=== PATIENT | female | born 1945 | race Caucasian/White ===

== ENCOUNTER 2019-03-21 16:03 | Inpatient (IN) | payer MEDICARE, OTHER ==
[2019-03-21] MEDS ORDERED: Morphine 4 MG/ML VIAL (1 ml) 4 MG/ML VIAL IV ONE (17:06)
[2019-03-21] MEDS ORDERED: NS 0.9% 1000 ML** 1,000 ML IV ONE (17:06)
[2019-03-21 17:09] LABS: Urine Appearance Clear; Urine Bacteria Absent (Absent); Urine Bilirubin Negative (Negative); Urine Blood 3+ (Negative); Urine Color Straw; Urine Glucose 1+(50 mg/dL) (Negative); Urine Ketones 1+ (Negative); Urine Nitrite Negative (Negative); Urine Protein Negative (Negative); Urine Red Blood Cell 3+(>10/hpf) (Absent); Urine Squamous Epithelial Cell Present (Absent); Urine Urobilinogen Negative (Negative); Urine White Blood Cell Trace(0-5/hpf) (Absent)
[2019-03-21] MEDS ORDERED: cloNIDine TAB* 0.1 MG PO ONE (17:32)
[2019-03-21] MEDS ORDERED: Acetaminophen TAB* 325 MG PO PRN (18:39)
[2019-03-21] MEDS ORDERED: Ondansetron INJ* 2 MG/ML VIAL IV PRN (18:39)
[2019-03-21] MEDS ORDERED: Heparin VIAL(*) 5000 UNITS/ML VIAL (FIVE THOUSAND) SUBCUT ONE (18:46)
[2019-03-21] MEDS ORDERED: Metoprolol Tartrate IV* 1 MG/ML 5 ML VIAL IV PRN (18:47)
[2019-03-21] MEDS ORDERED: Morphine 4 MG/ML VIAL (1 ml) 4 MG/ML VIAL ONE (19:32)
[2019-03-21] MEDS: Morphine 4 MG/ML VIAL (1 ml) 4 MG/ML VIAL IV PRN (19:35)
[2019-03-21] MEDS: Lactated Ringers 1000 ML Bag* 1,000 ML IV SCH (20:56)
[2019-03-21] MEDS: Atorvastatin* 10 MG TAB PO SCH (21:00)
[2019-03-21] MEDS ORDERED: Metoprolol Succinate XL TAB* 50 MG PO SCH (21:00)
[2019-03-21] MEDS: Metoprolol Succinate XL TAB* 25 MG PO SCH (21:01)
--- NOTE | 2019-03-21 21:08 | HP ---
CC: Dr. Sierra Jacobs * ADMISSION HISTORY AND PHYSICAL: DATE OF ADMISSION: 03/21/19 PRIMARY CARE PROVIDER: Dr. Sierra Jacobs. MY ATTENDING WHILE IN THE HOSPITAL: Dr. Tre Palomares.* (DICTATED BY CINTHIA ELLIS) CHIEF COMPLAINT: Fall, left hip pain. HISTORY OF PRESENT ILLNESS: Ms. Ray Caro is a 73-year-old female with past medical history significant for multiple CVAs, hypertension, hyperlipidemia and hypothyroidism, who presents to the emergency department after she was feeling in her normal state of health today, she was walking around her house as she usually does using a rolling walker for support and got her legs caught in with each other and fell. The patient had a significant left-sided weakness from her previous CVAs. The patient immediately had left hip pain and was unable to get up. The patient had no chest pain, shortness of breath. No loss of consciousness. The patient is unsure whether she hit her head, but does have a hematoma on her head that is consistent with a head trauma. The patient had no intracranial hemorrhaging on CT. No cervical spine bony abnormalities. Her chest x-ray was normal. The patient at the outside hospital at [facility] had an x-ray, which showed an acute subcapital left hip fracture and the patient was transferred to [facility] for evaluation by an orthopedist for possible surgical fixation and/or otherwise treatment. The patient at [facility] had labs, which showed slightly low platelet count at 123, normal creatinine , and a slightly elevated troponin at 0.034. The patient also had a blood pressure of greater than 200/100. The patient had taken her metoprolol succinate 50 mg, which she takes routinely at night. The patient was given clonidine and labetalol at the outside hospital and clonidine here as well. The patient had no other vital sign abnormalities. Due to concern for hip fracture, we were asked to evaluate the patient for admission to the hospital. PAST MEDICAL HISTORY: CVA x3, hypertension, hyperlipidemia, hypothyroidism. PAST SURGICAL HISTORY: None. MEDICATIONS: 1. Synthroid 75 mcg p.o. daily. 2. Aspirin 81 mg p.o. daily. 3. Metoprolol XL 50 mg p.o. nightly. 4. Simvastatin 20 mg p.o. nightly. ALLERGIES: No known drug allergies. FAMILY HISTORY: The patient's family history is unknown as she is adopted. Her daughter has no past medical history. SOCIAL HISTORY: The patient never smoked, drank alcohol, or used illicit drugs. The patient used to be a school speech therapist. The patient is and has 4 children. The patient's surrogate decision maker will be her daughter, Diana Ventura. REVIEW OF SYSTEMS: A 14-point review of systems was reviewed with the patient and is negative except as above in the HPI. PHYSICAL EXAMINATION GENERAL: The patient is a 73-year-old female who appears stated age and sitting comfortably in bed, in no acute distress. VITAL SIGNS: At the time of evaluation, temperature 98.0, pulse rate 90, respiratory rate 20, oxygen saturation 95% on room air, blood pressure 164/93. HEENT: Head: Normocephalic, atraumatic. Sclerae anicteric. No conjunctival injection. Nasal mucosa dry. Oral mucosa dry. No pharyngeal erythema, discharge, or exudate. NECK: Supple, nontender. No lymphadenopathy. No carotid bruits auscultated. No JVD. RESPIRATORY: Clear to auscultation bilaterally. No wheezes, rales, or rhonchi. Good air exchange bilaterally. CARDIAC: Regular rate and rhythm. No clicks, murmurs, gallops, or rubs. Pulses are 2+ in the bilateral dorsalis pedis, posterior tibialis, and radial areas. No bilateral lower extremity edema noted. No bilateral calf tenderness. ABDOMEN: Soft, nontender, nondistended. Bowel sounds present and normoactive in all 4 quadrants. No hepatosplenomegaly. No abdominal bruits auscultated. No hepatojugular reflux. GENITOURINARY: No suprapubic or CVA tenderness. MUSCULOSKELETAL: Left leg is shortened and externally rotated. Pain with any manipulation of the left lower extremity. NEURO: Left-sided facial droop. 3/5 strength in the left upper and lower extremities distally and proximally. 5/5 strength in the right upper and lower extremities distally and proximally. Alert, oriented, sometimes forgetful. PSYCHIATRIC: Pleasant and cooperative. SKIN: Clean, dry, and intact. No rash. DIAGNOSTIC STUDIES/LAB DATA: Laboratory data from outside hospital: White blood cell count 9.15, red blood cell count 4.32, hemoglobin 12.1, hematocrit 37.9, platelet count 123. INR 1.03, PTT 24.5. Glucose 138, BUN 17, creatinine 0.8, sodium 143, potassium 3.6, chloride 104, carbon dioxide 27, anion gap 12, calcium 9.7, magnesium 1.9. Protein 8.2, albumin 4.2, globulin 4.0. Bilirubin 0.5, AST 25, ALT 28, alkaline phosphatase 122. CPK 52, troponin I 0.034, CK-MB 1.3. Studies done at outside hospital: EKG shows normal sinus rhythm, normal axis, single PVC. No blocks or hypertrophy. No ST segment elevation or depression. Hip x-ray read as acute subcapital left hip fracture. CT head without intravenous contrast read as hydrocephalus, unchanged likely representing normal pressure hydrocephalus, no acute findings. Chest CT portable shows no acute cardiopulmonary disease. CT cervical spine shows degenerative changes, no acute findings. Studies done at this hospital: Troponin I 0.02. ASSESSMENT AND PLAN: Impression: Ms. Ray Caro is a 73-year-old female with past medical history significant for multiple cerebrovascular accidents with left- sided residual weakness, hypertension, hyperlipidemia, hypothyroidism, who was transferred from an outside emergency department with a fall and a left subcapital hip fracture, who was also found to have a slightly elevated troponin and a blood pressure with systolic greater than 200 and diastolic greater than 100. The patient will be admitted to the hospital for evaluation by Orthopedics and medical optimization before presumed surgery. 1. Subcapital left-sided hip fracture. Orthopedics will be consulted. This case has been discussed with Dr. Huseyin Gasca who says that the patient needs significant further medical optimization before she will be able to have surgery. The patient's RCRI is 1 due to previous history of cerebrovascular accident. The patient will be further risk stratified with a BNP, a repeat troponin. The patient's current troponin is below the normal limit for this lab. Of note, the patient's troponin at the outside hospital would have been below the lower limit of normal for this lab, thought that is hard to interpret. The patient has no chest pain. The patient had no syncope surrounding her fall. The patient's blood pressure was very elevated at the hospital outside and is still significantly elevated. There is certainly a component of pain here. The patient is on blood pressure medication with presumed good control outpatient, but this is not checked routinely. The patient will be continued on her home metoprolol and have an increased dose of metoprolol. The patient will also have IV metoprolol as needed for elevated blood pressures overnight. The patient will be n.p.o. after midnight for the possibility of surgery in the morning. The patient will have an echocardiogram and repeat EKG as well as a repeat troponin in the morning as well as a BNP. The patient will be reevaluated in the morning for risk stratification and medical optimization at that time. The patient's elevated troponin at the outside hospital is likely due to severe hypertension. The patient does not have any indication of acute myocardial infarction. 2. History of cerebrovascular accident x3. The patient has no new deficits. The patient falls relatively frequently at home. The patient will have physical therapy and occupational therapy after surgery and may need subacute rehab depending on her clinical course. 3. Hyperlipidemia. Continue the patient's simvastatin. 4. Abnormal urinalysis. The patient's urinalysis shows 3+ blood, 1+ ketones, and elevated glucose. The patient's glucose at the outside hospital was slightly elevated, but this was not fasting. The patient has no history of diabetes. The patient's hemoglobin A1c will be checked. The patient does not appear clinically to be in diabetic ketoacidosis. The patient will be given fluids. The patient's blood is likely related to Baez insertion. 5. DVT prophylaxis: The patient will receive 1 dose of heparin tonight. The patient will be risk stratified in the morning. If the patient is able to have orthopedic surgery tomorrow, heparin will be resumed postoperatively. If the patient is not able, the patient should have heparin resumed tomorrow. 6. FEN: The patient will have a heart-healthy diet and be n.p.o. after midnight for the possibility of surgery tomorrow if the patient is able to be medically optimized before then. 7. Disposition: The patient is admitted inpatient. Estimated length of stay greater than 2 midnights. 8. Code status: The patient would like to be a full code. TIME SPENT: Approximately 60 minutes was spent on the admission of this patient , 30 of which was spent [id number] with the patient obtaining history and physical and discussing treatment plan. This plan was discussed with my attending, Dr. Tre Palomares, and he is in agreement. CINTHIA ELLIS [id number]/[facility] #: [id number] OLU
[2019-03-22] MEDS ORDERED: NS 0.9% 1000 ML** 1,000 ML IV SCH
[2019-03-22] MEDS: Morphine 4 MG/ML VIAL (1 ml) 4 MG/ML VIAL IV PRN (05:00)
[2019-03-22 06:02] LABS: ABS Basophils 0 10^3/ul (0-0.2); ABS Eosinophils 0.2 10^3/ul (0-0.6); ABS Lymphocytes 0.8 10^3/ul (1.0-4.8); ABS Monocytes 0.5 10^3/ul (0-0.8); ABS Neutrophils 5.7 10^3/ul (1.5-7.7); ABS Nucleated RBC 0 10^3/ul; Eosinophil % 2.9 %; Hematocrit 32 % (33-41); Hemoglobin 11.3 g/dL (12.0-16.0); Lymphocyte % 11.5 %; Mean Corpuscular HGB Conc 35 g/dL (31-36); Mean Corpuscular Hemoglobin 29 pg (27-31); Mean Corpuscular Volume 84 fL (80-97); Mean Platelet Volume 8.2 fL (7.4-10.4); Nucleated Red Blood Cells % 0; Platelet Count 111 10^3/uL (150-450); Red Blood Count 3.86 10^6 /uL (3.70-4.87); Red Cell Distribution Width 16 % (10.5-15); White Blood Count 7.4 10^3/uL (3.5-10.8)
--- NOTE | 2019-03-22 06:09 | ED ---
Lower Extremity - HPI Summary HPI Summary: Patient is a 73-year-old female coming from [facility] with a left hip fracture. She states she was walking with her walker at home when she tripped, falling to her left side, immediately feeling pain to her left hip. She does not recall hitting her head and denies any known LOC. She does have a history of multiple CVAs, hypothyroidism and hypertension. On evaluation of [facility] she was found to be at a BP of 200/100 and was subsequently given labetalol and clonidine. She takes Toprol at night, aspirin 81 mg and Synthroid. She denies any other blood thinners. She lives at home with her . She states she has been weaker since CVAs, but denies any recent illness. She is endorsing 10/10 pain to the left hip and denies any headache, CP or SOB. - History of Current Complaint Chief Complaint: EDHipPelvisInjury Stated Complaint: LEG/ANKLE PAIN PER EMS REPORT Time Seen by Provider: 03/21/19 16:12 Hx Obtained From: Patient Mechanism Of Injury: Direct Blow Onset of Pain: Hours Onset/Duration: Hours Severity Initially: Severe Severity Currently: Severe Pain Intensity: 10 Pain Scale Used: 0-10 Numeric Timing: Constant Location: Is Discrete @ - left hip Associated Signs And Symptoms: Positive: Negative Alleviating Factor(s): Rest Able to Bear Weight: No - Allergies/Home Medications Allergies/Adverse Reactions: Allergies Allergy/AdvReac Type Severity Reaction Status Date / Time No Known Allergies Allergy Verified 11/14/12 01:40 Home Medications: Home Medications Levothyroxine Sodium 75 mcg PO DAILY 03/21/19 [History Confirmed 03/21/19] PMH/Surg Hx/FS Hx/Imm Hx Previously Healthy: Yes - hx of CVA's Endocrine/Hematology History: Reports: Hx Anticoagulant Therapy - BABY ASPIRIN/ DAY Denies: Hx Diabetes, Hx Systemic Lupus Erythematosus, Hx Thyroid Disease Cardiovascular History: Reports: Hx Hypercholesterolemia, Hx Hypertension Denies: Hx Congestive Heart Failure, Hx Pacemaker/ICD Respiratory History: Denies: Hx Asthma, Hx Chronic Obstructive Pulmonary Disease (COPD) GI History: Reports: Other GI Disorders - frequent indigestion relieved with with tums History: Denies: Hx Dialysis, Hx Renal Disease Musculoskeletal History: Denies: Hx Rheumatoid Arthritis Sensory History: Denies: Hx Cataracts, Hx Contacts or Glasses, Hx Eye Injury, Hx Eye Prosthesis, Hx Glaucoma, Hx Macular Degeneration, Hx Vision Problem, Hx Deafness , Hx Hearing Aid, Hx Hearing Problem, Other Sensory Impairments Opthamlomology History: Denies: Hx Cataracts, Hx Contacts or Glasses, Hx Eye Injury, Hx Eye Prosthesis, Hx Glaucoma, Hx Macular Degeneration, Hx Vision Problem, Other Sensory Impairments Neurological History: Denies: Hx Dementia, Hx Seizures, Other Neuro Impairments/Disorders Psychiatric History: Denies: Hx Panic Disorder, Hx Substance Abuse - Cancer History Hx Chemotherapy: No - Immunization History Date of Tetanus Vaccine: UNKNOWN Hx Pertussis Vaccination: Yes Immunizations Up to Date: Yes Infectious Disease History: No Infectious Disease History: Denies: Hx Clostridium Difficile, Hx Hepatitis, Hx Human Immunodeficiency Virus (HIV), Hx Shingles, Hx Tuberculosis, Traveled Outside the [place] in Last 30 Days - Social History Occupation: Unemployed Lives: With Family Alcohol Use: None Hx Substance Use: No Substance Use Type: Reports: None Hx Tobacco Use: No Smoking Status (MU): Never Smoked Tobacco Review of Systems Negative: Fever, Chills, Fatigue, Skin Diaphoresis Negative: Palpitations, Chest Pain Negative: Shortness Of Breath, Cough Negative: Abdominal Pain, Vomiting, Diarrhea, Nausea Positive: see HPI, discharge. Negative: burning, dysuria, incontinence, urgency Positive: Arthralgia - left hip pain with deformity - internal rotation Negative: Rash, Bruising Negative: Headache, Paresthesia All Other Systems Reviewed And Are Negative: Yes Physical Exam Triage Information Reviewed: Yes Vital Signs On Initial Exam: Initial Vitals Temp Pulse Resp BP Pulse Ox 98.0 F 101 19 194/103 95 03/21/19 16:14 03/21/19 16:14 03/21/19 16:14 03/21/19 16:14 03/21/19 16:14 Vital Signs Reviewed: Yes Appearance: Positive: Ill-Appearing, Pain Distress Skin: Positive: Pale Head/Face: Positive: Normal Head/Face Inspection, Cephalohematoma - left occipital area with ecchymosis and erythema Eyes: Positive: EOMI, Conjunctiva Clear Neck: Positive: Supple, Nontender, No Lymphadenopathy, Other: - no pain to palpation of bilateral neck and posterior cervical spine Respiratory/Lung Sounds: Positive: Clear to Auscultation, Breath Sounds Present Cardiovascular: Positive: RRR, Pulses are Symmetrical in both Upper and Lower Extremities, S1, S2. Negative: Leg Edema Left, Leg Edema Right Abdomen Description: Positive: Nontender, Bruit. Negative: CVA Tenderness (R), CVA Tenderness (L) Bowel Sounds: Positive: Present Musculoskeletal: Positive: Pain @ - left hip on direct palpation and with gentle log roll Neurological: Positive: Sensory/Motor Intact, Alert, Oriented to Person Place, Time, CN Intact II-III, Speech Normal, Other - decreased strength in L upper ext ; unable to assess lower ext d/t pain and fx Psychiatric: Positive: Affect/Mood Appropriate - patient is tearful AVPU Assessment: Alert - Trent Coma Scale Best Eye Response: 4 - Spontaneous Best Motor Response: 6 - Obeys Commands Best Verbal Response: 5 - Oriented Coma Scale Total: 15 Diagnostics - Vital Signs Vital Signs Temp Pulse Resp BP Pulse Ox 03/21/19 18:21 96 20 164/97 94 03/21/19 18:00 95 17 92 03/21/19 17:51 95 17 159/84 92 03/21/19 17:21 88 19 185/100 91 03/21/19 17:11 20 03/21/19 17:00 24 03/21/19 16:53 21 211/106 03/21/19 16:39 99 22 187/93 97 03/21/19 16:34 102 23 203/101 96 03/21/19 16:24 14 204/102 03/21/19 16:14 98.0 F 101 19 194/103 95 - Laboratory Lab Results: Lab Results 03/21/19 Range/Units 17:32 Troponin I 0.02 (<0.04) ng/mL Lab Statement: Any lab studies that have been ordered have been reviewed, and results considered in the medical decision making process. Re-Evaluation - Re-Evaluation First Eval Change: Unchanged - re-evaluation with elevated BP - given clonidine 0.1 Second Eval Change: Improved - patients pain and BP improved - will continue to monitor for pain control and assess BP Lower Extremity Course/Dx - Course Course Of Treatment: During this course of treatment, the patient is evaluated for left hip injury. She is a 10/10 pain on arrival and is given morphine for discomfort. A UA is obtained. She currently has a Doran catheter placed which does not show etta red blood, however on UA shows 3+ RBCs which could be d/t doran catheter insertion. She has no tenderness to the abdomen on physical exam. CTA. RRR. She has a left-sided deficit at her baseline and states this has not worsened recently. On neuro exam she does have a slight left-sided facial droop. She is alert and oriented, pleasant and cooperative. Her strength is diminished to the left upper extremity - unable to assess L lower extremity d/t pain. Left lower ext appears to be internally rotated. No ecchymosis to the area. Obvious deformity. Trop elevated at .034 at [facility], this is repeated on arrival and is pending results. She is given clonidine 0.1 for htn urgency and will observe carefully for slowly reducing BP elevation. This is likely secondary to pain and will control with morphine until hospitalist can evaluate. Discussed case with Dr. Palomares who will admit to service. Discussed with mona Brenner. - Diagnoses Differential Diagnosis/HQI/PQRI: Positive: Fracture (Closed), Other - fall Provider Diagnoses: Fall, Subcapital fracture of femur - Physician Notifications Discussed Care Of Patient With: Tre Palomares - also spoke with Dr Gasca ( ortho) Time Discussed With Above Provider: 17:45 Instructed by Provider To: Admit As Inpatient Discharge - Sign-Out/Discharge Documenting (check all that apply): Patient Departure All imaging exams completed and their final reports reviewed: Yes Patient Received Moderate/Deep Sedation with Procedure: No - Discharge Plan Condition: Fair Disposition: ADMITTED TO [facility] - Billing Disposition and Condition Condition: FAIR Disposition: Admitted to [facility]
[2019-03-22 06:21] LABS: BUN/Creatinine Ratio 21.2 (8-20); Calcium 9.1 mg/dL (8.6-10.3); EGFR African American 106.2 (>60); EGFR Non-African American 87.8 (>60); HDL Cholesterol 39.1 mg/dL; Magnesium 1.7 mg/dL (1.9-2.7); Potassium 4.1 mmol/L (3.5-5.0); Troponin I 0.03 ng/mL (<0.04)
[2019-03-22] MEDS: Atorvastatin* 10 MG TAB PO SCH ×2 (08:09→08:29)
[2019-03-22] MEDS: Lactated Ringers 1000 ML Bag* 1,000 ML IV SCH (10:17)
--- NOTE | 2019-03-22 10:42 | ECHO ---
Patient: TANVI BOYD [facility] Rec#: [id number] : 1945 Date: 03/22/2019 Age: 73y Height: 168 cm / 66.1 in Weight: 150 kg / 330.6 lbs Sex: F BSA: 2.48 Room#: 348 Admit Date#: 03/21/2019 Type: Inpatient Referring: LUCÍA SANTA Reading: Noé Kumari MD Restaurant Culinary Manager: Chelsey Méndez JANET CC: Sierra Jacobs MD Transthoracic Echocardiogram Indication: FL BP: 148/81 HR: 90 Rhythm: Tachycardia Findings History: Multiple CVAs, HTN.HLD,hypothyroid, fell [employer] resulting in fracute of left hip. Technical Comments: The study was technically limited due to the patient's inability to lay in the left lateral decubitus position. Study done with patient supine due to fractured left hip. Completed at 0835. Left Ventricle: The left ventricular chamber size is normal. There is normal left ventricular systolic function. The estimated ejection fraction is 55-60%. The assessment of diastolic function is non-diagnostic. Left Atrium: The left atrial chamber size is normal. Right Ventricle: The right ventricular cavity size is normal. The right ventricular global systolic function is normal. Right Atrium: The right atrium is not well visualized. Aortic Valve: The aortic valve is trileaflet. There is no evidence of aortic regurgitation. There is no evidence of aortic stenosis. Mitral Valve: The mitral valve leaflets are mildly thickened. There is trace to mild mitral regurgitation. There is no evidence of mitral stenosis. Tricuspid Valve: The tricuspid valve leaflets are normal. There is no evidence of tricuspid valve regurgitation. Unable to estimate the right ventricular systolic pressure. There is no tricuspid stenosis. Pulmonic Valve: The pulmonic valve appears normal. There is no evidence of pulmonic regurgitation. There is no pulmonic stenosis. Pericardium: A pericardial fat pad is visualized. Aorta: There is no dilatation of the ascending aorta. The aortic arch is not well visualized. There is no dilation of the aortic root. Pulmonary Artery: The main pulmonary artery appears normal. Venous: The inferior vena cava appears normal in size. There is a greater than 50% respiratory change in the inferior vena cava dimension. Summary: There was not any prior study for comparison. Conclusions There is normal left ventricular systolic function. The estimated ejection fraction is 55-60%. The assessment of diastolic function is non-diagnostic. The right ventricular global systolic function is normal. There is no evidence of aortic stenosis. There is trace to mild mitral regurgitation. There is no evidence of tricuspid valve regurgitation. Unable to estimate the right ventricular systolic pressure. Measurements Name Value Normal Range RVIDd (AP) 2D 2.3 cm (0.9 - 2.6) IVSd (2D) 0.8 cm (0.6 - 1) LVPWd (2D) 1 cm (0.6 - 1) LVIDd (2D) 4.3 cm (3.6 - 5.4) LVIDs (2D) 3.1 cm - LV FS (2D) 28 % (25 - 45) Aortic Annulus 2 cm (1.4 - 2.6) Ao root diameter (2D) 2.9 cm (2.1 - 3.5) Ascending Ao 2.6 cm (2.1 - 3.4) LA dimension (AP) 2D 3.1 cm (2.3 - 3.8) LAd ISD 4CH 4.4 cm (2.9 - 5.3) LA ISD 4CH W 4 cm (2.5 - 4.5) Name Value Normal Range MV E-wave Vmax 1.4 m/sec - MV deceleration time 143 msec - LV septal e' Vmax 0.17 m/sec - LV lateral e' Vmax 0.11 m/sec - LV E:e' septal ratio 8.23 ratio - LV E:e' lateral ratio 12.73 ratio - Name Value Normal Range AV Vmax 1.3 m/sec - AV VTI 24.7 cm - AV peak gradient 6 mmHg - AV mean gradient 3 mmHg - LVOT Vmax 0.8 m/sec - LVOT VTI 17.2 cm - LVOT peak gradient 3 mmHg - LVOT mean gradient 1 mmHg - Name Value Normal Range IVC diameter 1.7 cm - Name Value Normal Range PV Vmax 0.9 m/sec - PV peak gradient 3 mmHg -
[2019-03-22] MEDS ORDERED: ceFAZolin 2 GM in NS PREMIX(*) 2 GM/100 ML BAG IVPB ONE (12:19)
[2019-03-22] MEDS ORDERED: Buffered Lidocaine 1% SYRIN* 1 ML/SYRINGE INTRADERM ONE (12:19)
[2019-03-22] MEDS ORDERED: Etomidate* 2 MG/ML 10 ML VIAL ONE (12:28)
[2019-03-22] MEDS ORDERED: Lidocaine 2% PF * 5 ML VIAL ONE (12:28)
[2019-03-22] MEDS ORDERED: Rocuronium* 10 MG/ML VIAL ONE (12:28)
[2019-03-22] MEDS ORDERED: Propofol* 10 MG/ML 20 ML BTL ONE (12:28)
[2019-03-22] MEDS ORDERED: fentaNYL* 50 MCG/ML 2 ML VIAL (100 MCG VIAL) IV SLOW PU ONE (13:19)
[2019-03-22] MEDS ORDERED: fentaNYL* 50 MCG/ML 2 ML VIAL (100 MCG VIAL) ONE ×2 (13:21→13:48)
[2019-03-22] MEDS ORDERED: Bupivacaine 0.5%* 50 ML VIAL ONE (14:07)
[2019-03-22] MEDS ORDERED: Lidocaine 1% MPF wEPI 200,000* 30 ML SDV ONE (14:07)
[2019-03-22] MEDS ORDERED: HYDROmorphone INJ1* 1 MG/ML SYRINGE ONE (14:43)
[2019-03-22] MEDS ORDERED: Neostigmine Methylsulfate* 1 MG/ML 10 ML VIAL (1 mg/ml) ONE (15:43)
[2019-03-22] MEDS ORDERED: Glycopyrrolate IV* 0.2 MG/ML 1 ML VIAL ONE (15:43)
[2019-03-22] MEDS ORDERED: Naloxone* 0.4 MG/ML 1 ML VIAL IV PRN (16:35)
--- NOTE | 2019-03-22 17:29 | PN ---
Subjective Date of Service: 03/22/19 Interval History: Patient very sedated in PACU post-op. Objective Active Medications: Acetaminophen (Tylenol Tab*) 650 mg PO Q6H PRN PRN Reason: FEVER/PAIN Aspirin (Aspirin 81 Mg Chew Tab*) 81 mg PO DAILY [facility] Atorvastatin Calcium (Lipitor*) 10 mg PO DAILY [facility] Last Admin: 03/22/19 08:29 Dose: Not Given Lactated Ringer's (Lactated Ringers 1000 Ml Bag*) 1,000 mls @ 75 mls/hr IV PER RATE [facility] Last Admin: 03/22/19 10:17 Dose: 75 mls/hr Metoprolol Succinate (Toprol Xl Tab*) 75 mg PO 2100 [facility] Last Admin: 03/21/19 21:01 Dose: 75 mg Metoprolol Tartrate (Lopressor Iv*) 2.5 mg IV Q6H PRN PRN Reason: BLOOD PRESSURE Morphine Sulfate (Morphine 4 Mg/Ml Vial (1 Ml)) 1 mg IV Q3H PRN PRN Reason: PAIN Last Admin: 03/22/19 05:00 Dose: 1 mg Naloxone HCl (Narcan*) 0.08 mg IV Q2M PRN PRN Reason: severe induced resp depression Ondansetron HCl (Zofran Inj*) 4 mg IV Q6H PRN PRN Reason: NAUSEA Vital Signs - 8 hr 03/22/19 03/22/19 03/22/19 11:24 13:30 16:27 Temperature 99.1 F Pulse Rate 87 55 Respiratory 17 20 Rate Blood Pressure 176/88 (mmHg) O2 Sat by Pulse 100 Oximetry 03/22/19 03/22/19 03/22/19 16:28 16:30 16:35 Temperature 96.8 F Pulse Rate 54 55 55 Respiratory 9 6 Rate Blood Pressure 166/78 147/71 129/60 (mmHg) O2 Sat by Pulse 98 94 89 Oximetry 03/22/19 03/22/19 03/22/19 16:40 16:45 16:50 Temperature Pulse Rate 56 54 53 Respiratory 7 3 3 Rate Blood Pressure 141/67 139/66 132/65 (mmHg) O2 Sat by Pulse 90 99 99 Oximetry 03/22/19 03/22/19 03/22/19 16:55 17:00 17:01 Temperature Pulse Rate 53 54 53 Respiratory 5 0 1 Rate Blood Pressure 127/68 127/63 (mmHg) O2 Sat by Pulse 100 100 100 Oximetry 03/22/19 17:15 Temperature Pulse Rate 58 Respiratory Rate Blood Pressure 137/81 (mmHg) O2 Sat by Pulse 99 Oximetry Oxygen Devices in Use Now: Oropharyngeal Airway (OPA), OxyMask Appearance: Supine on PACU bed. Unresponsive to voice or light touch. Looks comfortable. Neck: NL Appearance and Movements; NL JVP, No Thyroid Enlargement, Masses Respiratory: Symmetrical Chest Expansion and Respiratory Effort, Clear to Auscultation, Clear to Percussion Cardiovascular: NL Sounds; No Murmurs; No JVD, RRR, No Edema, - Extremities: No Edema, No Clubbing, Cyanosis, - Skin: No Rash or Ulcers, No Nodules or Sclerosis, - Neurological: - - Unresponsive to voice or light touch. No tremor. Result Diagrams: 03/22/19 05:46 03/22/19 05:46 Additional Lab and Data: Lab Results 03/21/19 Range/Units 17:32 Troponin I 0.02 (<0.04) ng/mL Microbiology and Other Data: Microbiology 03/21/19 Unknown Urine Culture - Preliminary Urine Escherichia Coli Assess/Plan/Problems-Billing Assessment: - Patient Problems (1) Closed left hip fracture Current Visit: Yes Status: Acute Code(s): S72.002A - FRACTURE OF UNSP PART OF NECK OF LEFT FEMUR, INIT SNOMED Code(s): 624885424 Comment: ORIF 03/22/19. (2) History of CVA (cerebrovascular accident) Current Visit: Yes Status: Acute Code(s): Z86.73 - PRSNL HX OF TIA (TIA), AND CEREB INFRC W/O RESID DEFICITS SNOMED Code(s): 056137583 Comment: CVA x 3. Resume ASA 4/. Continue statin.
[2019-03-22] MEDS ORDERED: Ondansetron TAB* 4 MG PO PRN (22:13)
[2019-03-22] MEDS ORDERED: traMADol TAB* 50 MG PO PRN (22:13)
[2019-03-22] MEDS ORDERED: oxyCODONE TAB* 5 MG TAB PO PRN (22:14)
[2019-03-22] MEDS ORDERED: diPHENhydraMINE PO* 25 MG PO PRN (22:15)
[2019-03-22] MEDS ORDERED: Docusate CAP* 100 MG PO PRN (22:16)
[2019-03-22] MEDS ORDERED: ceFAZolin 1 GM* X 3 DOSES POST-OP Q8H (AddVan) IVPB SCH ×2 (23:00)
--- NOTE | 2019-03-22 23:45 | PN ---
Progress Note - Progress Note Date of Service: 03/22/19 Note: Paged for elevated temp: 102, just returned from PACU - Waking to sternal rub but remains heavily. Will obtain blood cultures, repeat U/A and start CTX.
[2019-03-23] MEDS: Metoprolol Succinate XL TAB* 25 MG PO SCH (00:12)
[2019-03-23] MEDS: cefTRIAXone(*) 1 GM in NS 0.9% 50 ML* 50 ML IVPB SCH (00:42)
[2019-03-23 00:50] LABS: Urine Appearance Cloudy; Urine Bacteria Absent (Absent); Urine Bilirubin Negative (Negative); Urine Blood 3+ (Negative); Urine Color Yellow; Urine Glucose Negative (Negative); Urine Ketones 1+ (Negative); Urine Nitrite Negative (Negative); Urine Protein Negative (Negative); Urine Red Blood Cell 3+(>10/hpf) (Absent); Urine Specific Gravity 1.015 (1.010-1.030); Urine Urobilinogen Negative (Negative); Urine White Blood Cell 3+(>20/hpf) (Absent)
--- NOTE | 2019-03-23 02:44 | OP ---
DATE OF OPERATION: 03/22/19 - ROOM #348 DATE OF : 45 SURGEON: Huseyin Gasca MD HOU[employer]OVER SUPERVISOR: Holley Marks RPA ANESTHESIA: General endotracheal. PRE-OP DIAGNOSIS: Displaced left femoral neck fracture. POST-OP DIAGNOSIS: Displaced left femoral neck fracture. OPERATIVE PROCEDURE: Left hip bipolar hemiarthroplasty. ESTIMATED BLOOD LOSS: 250 cc. COMPLICATIONS: None. HARDWARE: Nella M/L #9 Taper femoral stem, +0 28 mm head, 45 mm bipolar cup. INDICATIONS: Mrs. Ray Caro is a 73-year-old female who had fallen at home yesterday. She initially had presented to [facility] and was transferred here to [facility]. She was admitted by the hospitalist service in the evening and declared medically optimized. She was therefore added on to the OR schedule. I discussed with her this morning that a solomon-arthroplasty should work well to decrease her pain as well as allow her to get up and be mobile. I reiterated this and went through the surgery with her family later on as well and everyone was in agreement to proceed. DESCRIPTION OF PROCEDURE: The patient was brought to the OR and general endotracheal anesthesia was established. A line was placed as her blood pressures continued to climb while she was in the holding area. She did have a significant history of hypertension as well as CVA. Because her IV access was poor, IJ was also set up. She was then transferred to the OR table and rolled into the right lateral decubitus position. Axillary roll was placed and padding was placed about the left arm, so that the cubital tunnel would be free. Left hip area was prepped and then draped . Incisional area was infiltrated using 20 cc of a 50:50 mixture of 1% lidocaine with epinephrine and 0.5% Marcaine. Incision was made and carried down through the skin and subcutaneous tissues. Small bleeders encountered were ligated using electrocautery. Fascia was exposed and sharply incised. She actually had quite the greater trochanteric bursa and bursa was taken down. With rotation of the leg, exposure of the posterior aspect of the hip was gained, and Hohmann was placed under the gluteus medius/gluteus minimus. She had a left-sided hemiplegia and these were quite tight as I tried to come underneath them. Electrocautery was then used to take down piriformis and short external rotators along the back side of the greater trochanter and then capsule was entered. Blood was encountered. T-capsulotomy was made and femoral neck fracture was immediately evident. With rotating the leg, I was able to bring up the distal portion of the fracture and cleanup cut was taken. I templated this that we should just take right along the edge and it appeared I had taken the cut that I had wanted to. Leg was again rotated to try and bring the neck out of the way and exposure of the raw bone at the femoral head was exposed. Cork screw was placed and eventually I was able to get the femoral head out. Head passed through a 45 sizer and I thought she would be approximately a 44. Acetabulum was swept multiple times and several small pieces of bone were removed. Hip was copiously pulse lavaged. Damp lap was placed. I also had managed to keep her labrum intact. She was then trialed with a 44 and a 45 and I liked the fit of the 45 head. Attention was turned to the proximal femur. Box osteotome was used to open the canal and the canal finder was easily passed. Beginning with a #4 broach, she was progressively broached and she came down to a 9 quite nicely. This corresponded well to preoperative templating. Calcar planer was run, but not much needed to be taken. She was trialed with a reduced neck +0 with the bipolar head and her leg length appeared quite good. She also had excellent stability as she could be hyperflexed up without any instability, adducted, and internally rotated and only at about 60 degrees that she start to leave her out and this was the femoral head coming out of the bipolar cup. She was tight with extension, but I believe some of this was probably due to her hemiplegia. She was, however, quite stable. Trial instrumentation was removed and hip was copiously pulse lavaged. Parts were called for. A #9 M/L taper was then impacted into place. Head and bipolar cup were also impacted into place. Hip was reduced and she had the same wonderful motion and stability. Hip was again copiously pulse lavaged. Short external rotators and capsule were repaired together to the posterior aspect of the greater trochanter. Another round of pulse lavage was run and fascia was repaired using interrupted #1 Vicryl sutures. Remainder of the local was given in and about the hip. Subcutaneous tissues were reapproximated with 2-0 Vicryl. The skin was closed using landon. Sterile dressing and an abduction pillow were applied in the OR. The patient was then rolled on to the hospital bed and was extubated in the OR. She was then stable on transfer to the recovery room. [id number]/CPS #: [id number] MTDD
[2019-03-23 05:58] LABS: Hematocrit 27 % (33-41); Hemoglobin 9.5 g/dL (12.0-16.0); Mean Platelet Volume 8.9 fL (7.4-10.4); Platelet Count 84 10^3/uL (150-450)
[2019-03-23 06:07] LABS: BUN/Creatinine Ratio 16.2 (8-20); Calcium 8.5 mg/dL (8.6-10.3); EGFR African American 102.6 (>60); EGFR Non-African American 84.8 (>60); Potassium 3.6 mmol/L (3.5-5.0)
[2019-03-23] MEDS: Atorvastatin* 10 MG TAB PO SCH (09:22)
[2019-03-23] MEDS: Aspirin 81 mg CHEW TAB* 81 MG TAB.CHEW PO SCH (09:22)
[2019-03-23] MEDS: hydrALAZINE IV* 20 MG/ML VIAL IV SLOW PU PRN (09:27)
[2019-03-23] MEDS: Heparin VIAL(*) 5000 UNITS/ML VIAL (FIVE THOUSAND) SUBCUT SCH ×2 (09:28→16:32)
--- NOTE | 2019-03-23 10:18 | PN ---
Progress Note - Progress Note Date of Service: 03/23/19 SOAP: Subjective: []Pt seen at bedside. She is unable to have meaningful conversation with me. Her family is present and she is awake and alert. Objective: []General: Laying in bed, alert, not oriented LLE: left hip dressing CDI, no surrounding erythema, thigh is soft, DP2+, does not follow direction to assess DF/PF and sensation Calves supple and nontender without erythema, edema or palpable cords Assessment: []POD 1 sp left hip hemiarthroplasty Plan: []WBAT PT/OT posterior hip precautions Per medicine patient will have a brain CT today as she is not communicating at baseline. Her daughter states that her left side is weak since a previous stroke which does not seem to have changed from baseline On Ceftriaxone for UTI Vital Signs Temp 101.5 F 03/23/19 04:31 Pulse 102 03/23/19 07:28 Resp 22 03/23/19 08:00 BP 161/66 03/23/19 07:28 Pulse Ox 100 03/23/19 07:28 Intake & Output 03/22/19 03/23/19 03/23/19 18:59 06:59 18:59 Intake Total 2500 700 982 Output Total 1300 350 Balance 1200 350 982 Weight 183 lb 3.2 oz Intake: IV Fluids 2500 600 982 LR 2500 600 982 Oral 100 Output: Baez 1300 350 Laboratory Last Values WBC 7.4 10^3/uL (3.5-10.8) 03/22/19 05:46 RBC 3.86 10^6 /uL (3.70-4.87) 03/22/19 05:46 Hgb 9.5 g/dL (12.0-16.0) L 03/23/19 04:57 Hct 27 % (33-41) L 03/23/19 04:57 MCV 84 fL (80-97) 03/22/19 05:46 MCH 29 pg (27-31) 03/22/19 05:46 MCHC 35 g/dL (31-36) 03/22/19 05:46 RDW 16 % (10.5-15) H 03/22/19 05:46 Plt Count 84 10^3/uL (150-450) L 03/23/19 04:57 MPV 8.9 fL (7.4-10.4) 03/23/19 04:57 Neut % (Auto) 77.7 % 03/22/19 05:46 Lymph % (Auto) 11.5 % 03/22/19 05:46 [place] % (Auto) 7.4 % 03/22/19 05:46 Eos % (Auto) 2.9 % 03/22/19 05:46 Baso % (Auto) 0.5 % 03/22/19 05:46 Absolute Neuts (auto) 5.7 10^3/ul (1.5-7.7) 03/22/19 05:46 Absolute Lymphs (auto) 0.8 10^3/ul (1.0-4.8) L 03/22/19 05:46 Absolute Monos (auto) 0.5 10^3/ul (0-0.8) 03/22/19 05:46 Absolute Eos (auto) 0.2 10^3/ul (0-0.6) 03/22/19 05:46 Absolute Basos (auto) 0 10^3/ul (0-0.2) 03/22/19 05:46 Absolute Nucleated RBC 0 10^3/ul 03/22/19 05:46 Nucleated RBC % 0 03/22/19 05:46 Hem Pathologist Commnt 03/23/19 04:57 ABG pH 7.39 (7.35-7.45) 03/22/19 17:32 ABG pCO2 42 mmHg (35-45) 03/22/19 17:32 ABG pO2 91 mmHg (80-100) 03/22/19 17:32 ABG HCO3 25.1 mmol/L (19-31) 03/22/19 17:32 ABG O2 Saturation 99.0 % (94.0-98.0) H 03/22/19 17:32 ABG Base Excess 0.3 mmol/L (-2.0-2.0) 03/22/19 17:32 Sodium 134 mmol/L (135-145) L 03/23/19 04:57 Potassium 3.6 mmol/L (3.5-5.0) 03/23/19 04:57 Chloride 101 mmol/L (101-111) 03/23/19 04:57 Carbon Dioxide 27 mmol/L (22-32) 03/23/19 04:57 Anion Gap 6 mmol/L (2-11) 03/23/19 04:57 BUN 11 mg/dL (6-24) 03/23/19 04:57 Creatinine 0.68 mg/dL (0.51-0.95) 03/23/19 04:57 Est GFR ( Amer) 102.6 (>60) 03/23/19 04:57 Est GFR (Non-Af Amer) 84.8 (>60) 03/23/19 04:57 BUN/Creatinine Ratio 16.2 (8-20) 03/23/19 04:57 Glucose 156 mg/dL (70-100) H 03/23/19 04:57 Hemoglobin A1c 5.4 % (4.0-5.6) 03/22/19 05:46 Calcium 8.5 mg/dL (8.6-10.3) L 03/23/19 04:57 Magnesium 1.7 mg/dL (1.9-2.7) L 03/22/19 05:46 Troponin I 0.03 ng/mL (<0.04) 03/22/19 05:46 B-Natriuretic Peptide 126 pg/mL (<=100) H 03/21/19 20:10 Triglycerides 163 mg/dL 03/22/19 05:46 Cholesterol 122 mg/dL 03/22/19 05:46 LDL Cholesterol 50 mg/dL 03/22/19 05:46 HDL Cholesterol 39.1 mg/dL 03/22/19 05:46 Urine Color Yellow 03/23/19 00:20 Urine Appearance Cloudy 03/23/19 00:20 Urine pH 6.0 (5-9) 03/23/19 00:20 Ur Specific [place] 1.015 (1.010-1.030) 03/23/19 00:20 Urine Protein Negative (Negative) 03/23/19 00:20 Urine Ketones 1+ (Negative) A 03/23/19 00:20 Urine Blood 3+ (Negative) A 03/23/19 00:20 Urine Nitrate Negative (Negative) 03/23/19 00:20 Urine Bilirubin Negative (Negative) 03/23/19 00:20 Urine Urobilinogen Negative (Negative) 03/23/19 00:20 Ur Leukocyte Esterase 3+ (Negative) A 03/23/19 00:20 Urine WBC (Auto) 3+(>20/hpf) (Absent) A 03/23/19 00:20 Urine RBC (Auto) 3+(>10/hpf) (Absent) A 03/23/19 00:20 Ur Squamous Epith Cells Present (Absent) A 03/21/19 Unknown Urine Bacteria Absent (Absent) 03/23/19 00:20 Urine Glucose Negative (Negative) 03/23/19 00:20 Blood Type O Positive 03/22/19 05:46 Antibody Screen Negative 03/22/19 05:46
[2019-03-23] MEDS: Lactated Ringers 1000 ML Bag* 1,000 ML IV SCH (10:49)
--- NOTE | 2019-03-23 16:14 | PN ---
Subjective Interval History: s/p L hip bipolar hemiarthroplasty yesterday evening. Pt with severe lethargy overnight and this morning, with repeat head CT with stable ventriculomegatly. By afternoon was arousable to voice and denied pain except when moving L leg. Had fever to 102 after procedure and was rod-cultured and started on CTX. She is without focal signs of infection - denies cough, suprapubic pain or dysuria. Objective Active Medications: Acetaminophen (Tylenol Tab*) 650 mg PO Q6H PRN PRN Reason: FEVER/PAIN Aspirin (Aspirin 81 Mg Chew Tab*) 81 mg PO DAILY [facility] Last Admin: 03/23/19 09:22 Dose: Not Given Atorvastatin Calcium (Lipitor*) 10 mg PO DAILY [facility] Last Admin: 03/23/19 09:22 Dose: Not Given Heparin Sodium (Porcine) (Heparin Vial(*)) 5,000 units SUBCUT Q8H [facility] Last Admin: 03/23/19 09:28 Dose: 5,000 units Hydralazine HCl (Apresoline Iv*) 5 mg IV SLOW PU Q6H PRN PRN Reason: SBP > 180 Last Admin: 03/23/19 09:27 Dose: 5 mg Lactated Ringer's (Lactated Ringers 1000 Ml Bag*) 1,000 mls @ 75 mls/hr IV PER RATE [facility] Last Admin: 03/23/19 10:49 Dose: 75 mls/hr Ceftriaxone Sodium 1 gm/ (Sodium Chloride) 50 mls @ 200 mls/hr IVPB Q24H [facility] Last Admin: 03/23/19 00:42 Dose: 200 mls/hr Metoprolol Succinate (Toprol Xl Tab*) 75 mg PO 2100 [facility] Last Admin: 03/23/19 00:12 Dose: Not Given Metoprolol Tartrate (Lopressor Iv*) 2.5 mg IV Q6H PRN PRN Reason: BLOOD PRESSURE Morphine Sulfate (Morphine 4 Mg/Ml Vial (1 Ml)) 1 mg IV Q3H PRN PRN Reason: PAIN Last Admin: 03/22/19 05:00 Dose: 1 mg Ondansetron HCl (Zofran Tab*) 4 mg PO Q6H PRN PRN Reason: NAUSEA Oxycodone HCl (Roxycodone Tab*) 5 mg PO Q4H PRN PRN Reason: PAIN - BREAKTHROUGH Tramadol HCl (Ultram*) 50 mg PO Q6H PRN PRN Reason: SEVERE PAIN Oxygen Devices in Use Now: None Appearance: appears comfortable, only arousable to loud voice Eyes: PERRLA Ears/Nose/Mouth/Throat: Clear Oropharnyx, Mucous Membranes Moist Respiratory: Clear to Percussion Cardiovascular: RRR Extremities: No Edema, - - L hip bandage c/d/i Neurological: - - not able to answer orientation questions - lethargic Result Diagrams: 03/23/19 04:57 03/23/19 04:57 Additional Lab and Data: Lab Results Microbiology and Other Data: Microbiology 03/21/19 Unknown Urine Culture - Preliminary Urine Escherichia Coli Assess/Plan/Problems-Billing Assessment: 73W with HTN, 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 after mechanical fall c/b L subcapital hip fracture and severe hypertension. - Patient Problems (1) Closed left hip fracture Comment: ORIF 03/22/19. - pain control - bowel regimen - PT/OT - posterior hip precautions (2) Altered mental status Comment: Likely metabolic encephalopathy from anaesthesia in OR, with slow recovery given prior strokes. CT without significant change - stable ventriculomegaly. - will DC ceftriaxone if cultures result negative by day 2 - reduce sedating medications - aspiration precautions (3) History of CVA (cerebrovascular accident) Comment: CVA x 3 with residual L-sided weakness. - continue ASA and statin. (4) Hypertension Comment: Had SBP 200 at outside hospital. - currently unable to accept PO - will control with IV prns - may need second agent (at home was only on metoprolol) Status and Disposition: PMRU vs rehab
[2019-03-23] MEDS ORDERED: Senna TAB PO PRN (16:22)
[2019-03-23] MEDS ORDERED: Polyethylene Glycol 3350* 17 GM PACKET PO PRN (16:22)
[2019-03-23] MEDS ORDERED: traMADol TAB* 50 MG PO PRN (16:22)
[2019-03-23] MEDS ORDERED: Acetaminophen TAB* 325 MG PO PRN (16:22)
[2019-03-23 17:28] LABS: TSH (Thyroid Stimulating Horm) 1.56 mcIU/mL (0.34-5.60)
[2019-03-24] MEDS: cefTRIAXone(*) 1 GM in NS 0.9% 50 ML* 50 ML IVPB SCH (00:03)
[2019-03-24] MEDS: Heparin VIAL(*) 5000 UNITS/ML VIAL (FIVE THOUSAND) SUBCUT SCH ×3 (00:04→17:21)
[2019-03-24] MEDS: Metoprolol Succinate XL TAB* 25 MG PO SCH (00:07)
[2019-03-24] MEDS: Acetaminophen SUPP* 650 MG SUPP PR PRN ×2 (00:23→09:45)
[2019-03-24] MEDS: Morphine INJ* 2 MG/ML 1 ML SYRINGE (TWO MG - NEW SYRINGE VERSION) IV PRN (01:46)
[2019-03-24] MEDS: Lactated Ringers 1000 ML Bag* 1,000 ML IV SCH ×2 (02:59→15:12)
[2019-03-24 08:05] LABS: ABS Basophils 0 10^3/ul (0-0.2); ABS Eosinophils 0 10^3/ul (0-0.6); ABS Lymphocytes 0.5 10^3/ul (1.0-4.8); ABS Monocytes 0.8 10^3/ul (0-0.8); ABS Neutrophils 6.2 10^3/ul (1.5-7.7); ABS Nucleated RBC 0 10^3/ul; Eosinophil % 0.3 %; Hematocrit 25 % (33-41); Hemoglobin 8.6 g/dL (12.0-16.0); Lymphocyte % 7.3 %; Mean Corpuscular HGB Conc 35 g/dL (31-36); Mean Corpuscular Hemoglobin 29 pg (27-31); Mean Corpuscular Volume 83 fL (80-97); Mean Platelet Volume 8.5 fL (7.4-10.4); Nucleated Red Blood Cells % 0; Platelet Count 92 10^3/uL (150-450); Red Blood Count 2.99 10^6 /uL (3.70-4.87); Red Cell Distribution Width 16 % (10.5-15); White Blood Count 7.6 10^3/uL (3.5-10.8)
[2019-03-24 08:10] LABS: BUN/Creatinine Ratio 18.9 (8-20); Calcium 8.3 mg/dL (8.6-10.3); EGFR African American 136.8 (>60); EGFR Non-African American 113.1 (>60); Magnesium 1.6 mg/dL (1.9-2.7); Potassium 3.4 mmol/L (3.5-5.0)
--- NOTE | 2019-03-24 08:39 | PN ---
Progress Note - Progress Note Date of Service: 03/24/19 SOAP: Subjective: []Pt seen at bedside, mentation is improved from yesterday. Patient does not express any current complaints Objective: []General:NAD, alert and oriented to self, appropriate commentary during exam to express pain with movement to change dressing, follows some direction LLE: Left hip incision CDI, no erythema or discharge. Thigh is soft, DF/PF intact, DP2+, sensation intact to light touch distally Calves supple and nontender without erythema, edema or palpable cords Assessment: []POD [address] Gasca Plan: []WBAT PT/OT Posterior hip precautions heparin for dvt prophy in house, lovenox 40mg qd for remainder of 30 days post op is appropriate at [place] PMRU referral in but unable to participate with PT yesterday to determine eligibility Vital Signs Temp 99.6 F 03/24/19 11:04 Pulse 89 03/24/19 11:04 Resp 15 03/24/19 11:04 BP 157/63 03/24/19 11:04 Pulse Ox 96 03/24/19 11:04 Intake & Output 03/23/19 03/24/19 03/24/19 18:59 06:59 18:59 Intake Total 1102 1138 55 Output Total 350 500 150 Balance 752 638 -95 Intake: IV Fluids 982 1038 ABX - CEFTRIAXONE 55 LR 982 983 IVPB 55 Magnesium 55 Oral 120 100 Output: Baez 350 500 150 Other: # Bowel Movements 0 Laboratory Last Values WBC 7.6 10^3/uL (3.5-10.8) 03/24/19 07:40 RBC 2.99 10^6 /uL (3.70-4.87) L 03/24/19 07:40 Hgb 8.6 g/dL (12.0-16.0) L 03/24/19 07:40 Hct 25 % (33-41) L 03/24/19 07:40 MCV 83 fL (80-97) 03/24/19 07:40 MCH 29 pg (27-31) 03/24/19 07:40 MCHC 35 g/dL (31-36) 03/24/19 07:40 RDW 16 % (10.5-15) H 03/24/19 07:40 Plt Count 92 10^3/uL (150-450) L 03/24/19 07:40 MPV 8.5 fL (7.4-10.4) 03/24/19 07:40 Neut % (Auto) 81.7 % 03/24/19 07:40 Lymph % (Auto) 7.3 % 03/24/19 07:40 [place] % (Auto) 10.4 % 03/24/19 07:40 Eos % (Auto) 0.3 % 03/24/19 07:40 Baso % (Auto) 0.3 % 03/24/19 07:40 Absolute Neuts (auto) 6.2 10^3/ul (1.5-7.7) 03/24/19 07:40 Absolute Lymphs (auto) 0.5 10^3/ul (1.0-4.8) L 03/24/19 07:40 Absolute Monos (auto) 0.8 10^3/ul (0-0.8) 03/24/19 07:40 Absolute Eos (auto) 0 10^3/ul (0-0.6) 03/24/19 07:40 Absolute Basos (auto) 0 10^3/ul (0-0.2) 03/24/19 07:40 Absolute Nucleated RBC 0 10^3/ul 03/24/19 07:40 Nucleated RBC % 0 03/24/19 07:40 Hem Pathologist Commnt 03/23/19 04:57 ABG pH 7.39 (7.35-7.45) 03/22/19 17:32 ABG pCO2 42 mmHg (35-45) 03/22/19 17:32 ABG pO2 91 mmHg (80-100) 03/22/19 17:32 ABG HCO3 25.1 mmol/L (19-31) 03/22/19 17:32 ABG O2 Saturation 99.0 % (94.0-98.0) H 03/22/19 17:32 ABG Base Excess 0.3 mmol/L (-2.0-2.0) 03/22/19 17:32 Sodium 133 mmol/L (135-145) L 03/24/19 07:40 Potassium 3.4 mmol/L (3.5-5.0) L 03/24/19 07:40 Chloride 101 mmol/L (101-111) 03/24/19 07:40 Carbon Dioxide 27 mmol/L (22-32) 03/24/19 07:40 Anion Gap 5 mmol/L (2-11) 03/24/19 07:40 BUN 10 mg/dL (6-24) 03/24/19 07:40 Creatinine 0.53 mg/dL (0.51-0.95) 03/24/19 07:40 Est GFR ( Amer) 136.8 (>60) 03/24/19 07:40 Est GFR (Non-Af Amer) 113.1 (>60) 03/24/19 07:40 BUN/Creatinine Ratio 18.9 (8-20) 03/24/19 07:40 Glucose 137 mg/dL (70-100) H 03/24/19 07:40 Hemoglobin A1c 5.4 % (4.0-5.6) 03/22/19 05:46 Calcium 8.3 mg/dL (8.6-10.3) L 03/24/19 07:40 Magnesium 1.6 mg/dL (1.9-2.7) L 03/24/19 07:40 Troponin I 0.03 ng/mL (<0.04) 03/22/19 05:46 B-Natriuretic Peptide 126 pg/mL (<=100) H 03/21/19 20:10 Triglycerides 163 mg/dL 03/22/19 05:46 Cholesterol 122 mg/dL 03/22/19 05:46 LDL Cholesterol 50 mg/dL 03/22/19 05:46 HDL Cholesterol 39.1 mg/dL 03/22/19 05:46 TSH 1.56 mcIU/mL (0.34-5.60) 03/23/19 04:57 Urine Color Yellow 03/23/19 00:20 Urine Appearance Cloudy 03/23/19 00:20 Urine pH 6.0 (5-9) 03/23/19 00:20 Ur Specific [place] 1.015 (1.010-1.030) 03/23/19 00:20 Urine Protein Negative (Negative) 03/23/19 00:20 Urine Ketones 1+ (Negative) A 03/23/19 00:20 Urine Blood 3+ (Negative) A 03/23/19 00:20 Urine Nitrate Negative (Negative) 03/23/19 00:20 Urine Bilirubin Negative (Negative) 03/23/19 00:20 Urine Urobilinogen Negative (Negative) 03/23/19 00:20 Ur Leukocyte Esterase 3+ (Negative) A 03/23/19 00:20 Urine WBC (Auto) 3+(>20/hpf) (Absent) A 03/23/19 00:20 Urine RBC (Auto) 3+(>10/hpf) (Absent) A 03/23/19 00:20 Ur Squamous Epith Cells Present (Absent) A 03/21/19 Unknown Urine Bacteria Absent (Absent) 03/23/19 00:20 Urine Glucose Negative (Negative) 03/23/19 00:20 Blood Type O Positive 03/22/19 05:46 Antibody Screen Negative 03/22/19 05:46
[2019-03-24] MEDS ORDERED: Magnesium Sulfate 2 GM IV* 2 GM/50 ML BAG IVPB ONE (09:01)
[2019-03-24] MEDS: Atorvastatin* 10 MG TAB PO SCH (09:45)
[2019-03-24] MEDS: Aspirin 81 mg CHEW TAB* 81 MG TAB.CHEW PO SCH (09:45)
[2019-03-24] MEDS: KCL 20 MEQ/100 ML IVPREMIX* 20 MEQ/100 ML BAG IV SCH ×2 (11:31→15:12)
[2019-03-24] MEDS: Acetaminophen TAB* 325 MG PO PRN (17:20)
[2019-03-24] MEDS: hydrALAZINE IV* 20 MG/ML VIAL IV SLOW PU PRN (17:21)
--- NOTE | 2019-03-24 20:34 | PN ---
Subjective Date of Service: 03/24/19 Interval History: Patient more interactive today. Already following me with her eyes before I called her name. Reports that she is not in pain but she will tell me when she is. Sp&Sw denishaal recommending pureed diet with honey-thickened liquids. Adding SCDs. Taking doran out today. Objective Active Medications: Acetaminophen (Tylenol Tab*) 975 mg PO Q8H PRN PRN Reason: fever or mild pain Last Admin: 03/24/19 17:20 Dose: 975 mg Aspirin (Aspirin 81 Mg Chew Tab*) 81 mg PO DAILY [facility] Last Admin: 03/24/19 09:45 Dose: Not Given Atorvastatin Calcium (Lipitor*) 10 mg PO DAILY [facility] Last Admin: 03/24/19 09:45 Dose: Not Given Heparin Sodium (Porcine) (Heparin Vial(*)) 5,000 units SUBCUT Q8H [facility] Last Admin: 03/24/19 17:21 Dose: 5,000 units Hydralazine HCl (Apresoline Iv*) 5 mg IV SLOW PU Q6H PRN PRN Reason: SBP > 180 Last Admin: 03/24/19 17:21 Dose: 5 mg Ceftriaxone Sodium 1 gm/ (Sodium Chloride) 50 mls @ 200 mls/hr IVPB Q24H [facility] Last Admin: 03/24/19 00:03 Dose: 200 mls/hr Metoprolol Succinate (Toprol Xl Tab*) 75 mg PO 2100 [facility] Last Admin: 03/24/19 00:07 Dose: 75 mg Metoprolol Tartrate (Lopressor Iv*) 2.5 mg IV Q6H PRN PRN Reason: BLOOD PRESSURE Morphine Sulfate (Morphine Inj (Syringe))*) 1 mg IV Q3H PRN PRN Reason: SEVERE PAIN Last Admin: 03/24/19 01:46 Dose: 1 mg Ondansetron HCl (Zofran Tab*) 4 mg PO Q6H PRN PRN Reason: NAUSEA Oxycodone HCl (Roxycodone Tab*) 5 mg PO Q4H PRN PRN Reason: PAIN - BREAKTHROUGH Polyethylene Glycol/Electrolytes (Miralax*) 17 gm PO DAILY PRN PRN Reason: CONSTIPATION Senna (Senokot Tab*) 1 tab PO BEDTIME PRN PRN Reason: no BM during day Tramadol HCl (Ultram*) 50 mg PO Q6H PRN PRN Reason: Moderate Pain Vital Signs - 8 hr 03/24/19 03/24/19 03/24/19 16:54 16:55 20:06 Temperature 100.4 F 99.0 F Pulse Rate 107 91 Respiratory 22 20 Rate Blood Pressure 186/82 114/55 (mmHg) O2 Sat by Pulse 98 95 Oximetry Oxygen Devices in Use Now: None Eyes: PERRLA Ears/Nose/Mouth/Throat: - - poor dentition, mouth dry Respiratory: - - clear anteriorly Cardiovascular: RRR Abdominal: NL Sounds; No Tenderness; No Distention Extremities: No Edema Neurological: - Result Diagrams: 03/24/19 07:40 03/24/19 07:40 Additional Lab and Data: Lab Results Microbiology and Other Data: Microbiology 03/21/19 Unknown Urine Culture - Preliminary Urine Escherichia Coli Assess/Plan/Problems-Billing Assessment: 73W with HTN, 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 after mechanical fall c/b L subcapital hip fracture and severe hypertension. - Patient Problems (1) Closed left hip fracture Comment: ORIF 03/22/19. - pain control - bowel regimen - PT/OT - posterior hip precautions (2) Altered mental status Comment: Likely metabolic encephalopathy from anaesthesia in OR, with slow recovery given prior strokes and reportedly poor baseline prior to fall. CT without significant change - stable ventriculomegaly. - will DC ceftriaxone if cultures result negative by day 2 - reduce sedating medications - aspiration precautions - speech and swallow recommending pureed diet with honey-thickened liquids - with post-op fever without focal signs of infection - will monitor closely, cont incentive spirometry (3) History of CVA (cerebrovascular accident) Comment: CVA x 3 with residual L-sided weakness. - continue ASA and statin. (4) Hypertension Comment: Had SBP 200 at outside hospital. - back on home metoprolol 75 -> will increase to succinate 100mg - may need second agent (5) Hypothyroid Comment: h/o TSH over 100 - start back on home dose levothyroxine 50mcg daily Status and Disposition: PMRU vs rehab
[2019-03-24] MEDS ORDERED: Metoprolol Succinate XL TAB* 100 MG PO SCH (21:00)
[2019-03-25] MEDS: cefTRIAXone(*) 1 GM in NS 0.9% 50 ML* 50 ML IVPB SCH (00:03)
[2019-03-25] MEDS: Morphine INJ* 2 MG/ML 1 ML SYRINGE (TWO MG - NEW SYRINGE VERSION) IV PRN (00:48)
[2019-03-25] MEDS: hydrALAZINE IV* 20 MG/ML VIAL IV SLOW PU PRN (01:03)
[2019-03-25] MEDS: Heparin VIAL(*) 5000 UNITS/ML VIAL (FIVE THOUSAND) SUBCUT SCH ×3 (01:10→17:31)
[2019-03-25] MEDS: Levothyroxine TAB* 50 MCG TAB PO SCH (05:48)
[2019-03-25 06:21] LABS: Hematocrit 23 % (33-41); Hemoglobin 7.8 g/dL (12.0-16.0); Mean Corpuscular HGB Conc 34 g/dL (31-36); Mean Corpuscular Hemoglobin 29 pg (27-31); Mean Corpuscular Volume 86 fL (80-97); Mean Platelet Volume 8.8 fL (7.4-10.4); Platelet Count 52 10^3/uL (150-450); Red Blood Count 2.73 10^6 /uL (3.70-4.87); Red Cell Distribution Width 16 % (10.5-15); White Blood Count 5.9 10^3/uL (3.5-10.8)
[2019-03-25 06:37] LABS: Calcium 8.2 mg/dL (8.6-10.3); Magnesium 2.1 mg/dL (1.9-2.7); Potassium 3.5 mmol/L (3.5-5.0)
[2019-03-25 06:42] LABS: BUN/Creatinine Ratio 18.5 (8-20); EGFR African American 133.9 (>60); EGFR Non-African American 110.7 (>60)
[2019-03-25] MEDS ORDERED: Metoprolol Tartrate TAB* 25 MG PO SCH (09:00)
[2019-03-25] MEDS: Atorvastatin* 10 MG TAB PO SCH (10:02)
[2019-03-25] MEDS: Aspirin 81 mg CHEW TAB* 81 MG TAB.CHEW PO SCH (10:02)
[2019-03-25] MEDS ORDERED: Bisacodyl SUPP* 10 MG SUPP ONE (10:50)
[2019-03-25] MEDS ORDERED: Bisacodyl SUPP* 10 MG SUPP PR ONE (10:52)
[2019-03-25] MEDS: Metoprolol Tartrate TAB* 50 mg PO SCH ×3 (11:10→21:54)
[2019-03-25] MEDS: KCL 20 MEQ/100 ML IVPREMIX* 20 MEQ/100 ML BAG IV SCH ×2 (11:11→15:21)
--- NOTE | 2019-03-25 16:01 | PN ---
Progress Note - Progress Note Date of Service: 03/25/19 SOAP: Subjective: []Pt seen at bedside. Denies CP, SOB, dizziness, nausea. L hip pain is well controlled. Objective: []General: NAD, alert, interactive today. LLE: Left hip incision CDI, no erythema or discharge. Thigh is soft, DF/PF intact, DP2+, sensation intact to light touch distally Calves supple and nontender without erythema, edema or palpable cords Assessment: []POD 3 s/p solomon Dr Gasca Plan: []WBAT PT/OT Posterior hip precautions Heparin for dvt prophy in house, lovenox 40mg qd for remainder of 30 days post op is appropriate at vt PMRU referral in, needs rehab at [place] Vital Signs Temp 99.3 F 03/25/19 07:52 Pulse 99 03/25/19 07:52 Resp 16 03/25/19 12:00 BP 149/73 03/25/19 07:52 Pulse Ox 95 03/25/19 07:52 Intake & Output 03/24/19 03/25/19 03/25/19 18:59 06:59 18:59 Intake Total 1254 60 240 Output Total 150 0 0 Balance 1104 60 240 Intake: IV Fluids 999 LR 999 IVPB 255 Magnesium 55 Potassium 200 Oral 60 240 Output: Urine 0 0 Baez 150 Other: Estimated Void Large Large Medium # Bowel Movements 0 # Voids 1 1 1 Laboratory Last Values WBC 5.9 10^3/uL (3.5-10.8) 03/25/19 05:41 RBC 2.73 10^6 /uL (3.70-4.87) L 03/25/19 05:41 Hgb 7.8 g/dL (12.0-16.0) L 03/25/19 05:41 Hct 23 % (33-41) L 03/25/19 05:41 MCV 86 fL (80-97) 03/25/19 05:41 MCH 29 pg (27-31) 03/25/19 05:41 MCHC 34 g/dL (31-36) 03/25/19 05:41 RDW 16 % (10.5-15) H 03/25/19 05:41 Plt Count 52 10^3/uL (150-450) L 03/25/19 05:41 MPV 8.8 fL (7.4-10.4) 03/25/19 05:41 Neut % (Auto) 81.7 % 03/24/19 07:40 Lymph % (Auto) 7.3 % 03/24/19 07:40 Galax % (Auto) 10.4 % 03/24/19 07:40 Eos % (Auto) 0.3 % 03/24/19 07:40 Baso % (Auto) 0.3 % 03/24/19 07:40 Absolute Neuts (auto) 6.2 10^3/ul (1.5-7.7) 03/24/19 07:40 Absolute Lymphs (auto) 0.5 10^3/ul (1.0-4.8) L 03/24/19 07:40 Absolute Monos (auto) 0.8 10^3/ul (0-0.8) 03/24/19 07:40 Absolute Eos (auto) 0 10^3/ul (0-0.6) 03/24/19 07:40 Absolute Basos (auto) 0 10^3/ul (0-0.2) 03/24/19 07:40 Absolute Nucleated RBC 0 10^3/ul 03/24/19 07:40 Nucleated RBC % 0 03/24/19 07:40 Hem Pathologist Commnt 03/23/19 04:57 ABG pH 7.39 (7.35-7.45) 03/22/19 17:32 ABG pCO2 42 mmHg (35-45) 03/22/19 17:32 ABG pO2 91 mmHg (80-100) 03/22/19 17:32 ABG HCO3 25.1 mmol/L (19-31) 03/22/19 17:32 ABG O2 Saturation 99.0 % (94.0-98.0) H 03/22/19 17:32 ABG Base Excess 0.3 mmol/L (-2.0-2.0) 03/22/19 17:32 Sodium 138 mmol/L (135-145) 03/25/19 05:41 Potassium 3.5 mmol/L (3.5-5.0) 03/25/19 05:41 Chloride 106 mmol/L (101-111) 03/25/19 05:41 Carbon Dioxide 23 mmol/L (22-32) 03/25/19 05:41 Anion Gap 9 mmol/L (2-11) 03/25/19 05:41 BUN 10 mg/dL (6-24) 03/25/19 05:41 Creatinine 0.54 mg/dL (0.51-0.95) 03/25/19 05:41 Est GFR ( Amer) 133.9 (>60) 03/25/19 05:41 Est GFR (Non-Af Amer) 110.7 (>60) 03/25/19 05:41 BUN/Creatinine Ratio 18.5 (8-20) 03/25/19 05:41 Glucose 105 mg/dL (70-100) H 03/25/19 05:41 Hemoglobin A1c 5.4 % (4.0-5.6) 03/22/19 05:46 Calcium 8.2 mg/dL (8.6-10.3) L 03/25/19 05:41 Magnesium 2.1 mg/dL (1.9-2.7) 03/25/19 05:41 Troponin I 0.03 ng/mL (<0.04) 03/22/19 05:46 B-Natriuretic Peptide 126 pg/mL (<=100) H 03/21/19 20:10 Triglycerides 163 mg/dL 03/22/19 05:46 Cholesterol 122 mg/dL 03/22/19 05:46 LDL Cholesterol 50 mg/dL 03/22/19 05:46 HDL Cholesterol 39.1 mg/dL 03/22/19 05:46 TSH 1.56 mcIU/mL (0.34-5.60) 03/23/19 04:57 Urine Color Yellow 03/23/19 00:20 Urine Appearance Cloudy 03/23/19 00:20 Urine pH 6.0 (5-9) 03/23/19 00:20 Ur Specific Felch 1.015 (1.010-1.030) 03/23/19 00:20 Urine Protein Negative (Negative) 03/23/19 00:20 Urine Ketones 1+ (Negative) A 03/23/19 00:20 Urine Blood 3+ (Negative) A 03/23/19 00:20 Urine Nitrate Negative (Negative) 03/23/19 00:20 Urine Bilirubin Negative (Negative) 03/23/19 00:20 Urine Urobilinogen Negative (Negative) 03/23/19 00:20 Ur Leukocyte Esterase 3+ (Negative) A 03/23/19 00:20 Urine WBC (Auto) 3+(>20/hpf) (Absent) A 03/23/19 00:20 Urine RBC (Auto) 3+(>10/hpf) (Absent) A 03/23/19 00:20 Ur Squamous Epith Cells Present (Absent) A 03/21/19 Unknown Urine Bacteria Absent (Absent) 03/23/19 00:20 Urine Glucose Negative (Negative) 03/23/19 00:20 Blood Type O Positive 03/22/19 05:46 Antibody Screen Negative 03/22/19 05:46
--- NOTE | 2019-03-25 21:51 | PN ---
Subjective Date of Service: 03/25/19 Interval History: Pt's mental status improved from yesterday. Alert and moderately interactive with , [id number] and [id number] visitors. When asked how she feels, she responds "do you mean out of 10?". When asked if she can describe how she feels, or if she is in pain, she denies. Diet advanced by Speech & Swallow team. Yesterday was pureed with thickened liquids, today is mechanical ground with thin liquids. Pt also worked better with PT today. They are recommending skilled rehab and case management applied to [facility] today. Given no clear evidence for bacterial infection, will stop CTX that was started after procedure for AMS and fevers in PACU. Last dose was this AM just after midnight. Objective Active Medications: Acetaminophen (Tylenol Tab*) 975 mg PO Q8H PRN PRN Reason: fever or mild pain Last Admin: 03/24/19 17:20 Dose: 975 mg Aspirin (Aspirin 81 Mg Chew Tab*) 81 mg PO DAILY [facility] Last Admin: 03/25/19 10:02 Dose: 81 mg Atorvastatin Calcium (Lipitor*) 10 mg PO DAILY [facility] Last Admin: 03/25/19 10:02 Dose: 10 mg Heparin Sodium (Porcine) (Heparin Vial(*)) 5,000 units SUBCUT Q8H [facility] Last Admin: 03/25/19 17:31 Dose: 5,000 units Hydralazine HCl (Apresoline Iv*) 5 mg IV SLOW PU Q6H PRN PRN Reason: SBP > 180 Last Admin: 03/25/19 01:03 Dose: 5 mg Levothyroxine Sodium (Synthroid Tab*) 50 mcg PO DAILY@0600 [facility] Last Admin: 03/25/19 05:48 Dose: 50 mcg Metoprolol Tartrate (Lopressor Tab*) 50 mg PO BID [facility] Last Admin: 03/25/19 11:10 Dose: 50 mg Morphine Sulfate (Morphine Inj (Syringe))*) 1 mg IV Q3H PRN PRN Reason: SEVERE PAIN Last Admin: 03/25/19 00:48 Dose: 1 mg Oxycodone HCl (Roxycodone Tab*) 5 mg PO Q4H PRN PRN Reason: PAIN - BREAKTHROUGH Last Admin: 03/25/19 05:48 Dose: 5 mg Polyethylene Glycol/Electrolytes (Miralax*) 17 gm PO DAILY PRN PRN Reason: CONSTIPATION Senna (Senokot Tab*) 1 tab PO BEDTIME PRN PRN Reason: no BM during day Tramadol HCl (Ultram*) 50 mg PO Q6H PRN PRN Reason: Moderate Pain Last Admin: 03/25/19 10:02 Dose: 50 mg Vital Signs - 8 hr 03/25/19 03/25/19 03/25/19 17:32 20:10 21:04 Temperature 98.3 F 98.6 F Pulse Rate 94 96 Respiratory 18 18 18 Rate Blood Pressure 172/76 169/84 (mmHg) O2 Sat by Pulse 94 96 Oximetry Oxygen Devices in Use Now: None Appearance: chronically ill appearing woman, NAD and nontoxic, moderately interactive to questions but still slow responses Ears/Nose/Mouth/Throat: Mucous Membranes Moist Respiratory: Clear to Auscultation Cardiovascular: RRR Abdominal: NL Sounds; No Tenderness; No Distention Extremities: - - L hip bandage c/d/i, no surrounding edema or e/o hematoma; neurovascularly intact distally; LE wwp, no edema Result Diagrams: 03/25/19 05:41 03/25/19 05:41 Additional Lab and Data: Lab Results Microbiology and Other Data: Microbiology 03/21/19 Unknown Urine Culture - Preliminary Urine Escherichia Coli Assess/Plan/Problems-Billing Assessment: 73W with HTN, 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 - Patient Problems (1) Thrombocytopenia Comment: Chronic thrombocytopenia but has worsened the last few days, not in the setting of sepsis or infection. Does not appear to be bleeding into surgical site, by exam, although can review this possibility with ortho given slow Hgb decrease. No other signs of bleeding, no renal dysfunctin. Unclear etiology at this time. 4 Ts score is 3, which is low-probability for HIT. CTX can cause drug-induced thrombocytopenia but would expect that to happen 1-2 weeks after start of antibiotic. - add coags and hepatic panel to morning labs - consider heme consult in AM if worsening - would need peripheral blood smear - consider DC of dvt ppx if platelets fall below 50k (2) Closed left hip fracture Comment: ORIF 03/22/19. - pain control - bowel regimen - PT/OT - posterior hip precautions - lovenox 40mg subq daily for 30 days post-op - pending [place] (3) Altered mental status Comment: Likely metabolic encephalopathy from anaesthesia in OR, with slow recovery given prior strokes and reportedly poor baseline prior to fall. CT without significant change - stable ventriculomegaly. s/p CTX 03/23 - 03/25. - reduce sedating medications - aspiration precautions - follow speech and swallow recs - cont incentive spirometry (4) History of CVA (cerebrovascular accident) Comment: CVA x 3 with residual L-sided weakness. - continue ASA and statin. (5) Hypertension Comment: Had SBP 200 at outside hospital. - metoprolol tartrate 50mg q12h (this is crushable, succinate is not) - home med - adding amlodipine today (6) Hypothyroid Comment: h/o TSH over 100 - start back on home dose levothyroxine 50mcg daily Status and Disposition: Pending rehab placement.
[2019-03-25] MEDS ORDERED: Enoxaparin(*) 40 MG/0.4 ML SYR ONE (21:56)
[2019-03-25] MEDS ORDERED: amLODIPine TAB* 5 MG PO SCH (22:00)
[2019-03-25] MEDS ORDERED: Enoxaparin(*) 40 MG/0.4 ML SYR SUBCUT SCH (22:00)
[2019-03-25 23:56] LABS: Albumin 2.9 g/dL (3.2-5.2); Indirect Bilirubin 0.3 mg/dL (0.3-1.0); Total Bilirubin 0.4 mg/dL (0.2-1.0)
[2019-03-26 00:01] LABS: Albumin/Globulin Ratio 1.1 (1-3); Globulin 2.7 g/dL (2-4); Total Protein 5.6 g/dL (6.4-8.9)
[2019-03-26] MEDS: Morphine INJ* 2 MG/ML 1 ML SYRINGE (TWO MG - NEW SYRINGE VERSION) IV PRN (00:58)
[2019-03-26] MEDS: Levothyroxine TAB* 50 MCG TAB PO SCH (05:43)
[2019-03-26 06:28] LABS: Hematocrit 25 % (33-41); Hemoglobin 8.4 g/dL (12.0-16.0); Mean Corpuscular HGB Conc 34 g/dL (31-36); Mean Corpuscular Hemoglobin 28 pg (27-31); Mean Corpuscular Volume 84 fL (80-97); Mean Platelet Volume 8.4 fL (7.4-10.4); Platelet Count 111 10^3/uL (150-450); Red Blood Count 2.95 10^6 /uL (3.70-4.87); Red Cell Distribution Width 16 % (10.5-15); White Blood Count 6.1 10^3/uL (3.5-10.8)
[2019-03-26 06:30] LABS: Activated Partial Thrombo Time 35.3 seconds (26.0-36.3); INR 1.16 (0.82-1.09)
[2019-03-26 06:40] LABS: Albumin 3.1 g/dL (3.2-5.2); Calcium 8.5 mg/dL (8.6-10.3); EGFR African American 146.3 (>60); EGFR Non-African American 120.9 (>60); Globulin 3.1 g/dL (2-4); Potassium 3.7 mmol/L (3.5-5.0); Total Bilirubin 0.7 mg/dL (0.2-1.0); Total Protein 6.2 g/dL (6.4-8.9)
[2019-03-26 06:41] LABS: Indirect Bilirubin 0.5 mg/dL (0.3-1.0)
[2019-03-26 07:12] LABS: Folate 14.96 ng/mL (>3.99)
[2019-03-26 08:33] VITALS: BP 184/85
[2019-03-26] MEDS: Aspirin 81 mg CHEW TAB* 81 MG TAB.CHEW PO SCH (08:59)
[2019-03-26] MEDS: Acetaminophen TAB* 325 MG PO PRN (08:59)
[2019-03-26] MEDS: Metoprolol Tartrate TAB* 50 mg PO SCH (08:59)
[2019-03-26] MEDS: Atorvastatin* 10 MG TAB PO SCH (08:59)
[2019-03-26] MEDS: hydrALAZINE IV* 20 MG/ML VIAL IV SLOW PU PRN (08:59)
--- NOTE | 2019-03-26 11:57 | DS ---
DISCHARGE SUMMARY: DATE OF ADMISSION: 03/21/19 DATE OF DISCHARGE: 03/26/19 CONDITION ON DISCHARGE: Stable. DISPOSITION ON DISCHARGE: [facility]. PRIMARY DIAGNOSES: 1. Left subcapital hip fracture. 2. Severe hypertension. SECONDARY DIAGNOSES: Include: 1. Thrombocytopenia. 2. Altered mental status. 3. History of cerebrovascular accident. 4. Hypothyroidism. 5. Hyperlipidemia. MEDICATIONS ON DISCHARGE: 1. Simvastatin 20 mg daily. 2. Acetaminophen 975 mg 3 times a day. 3. Amlodipine 5 mg at bedtime. New Medications: 1. Aspirin 81 mg daily. 2. Lovenox 40 mg subcutaneously daily for 30 additional days. 3. Levothyroxine 50 mcg daily; please note decreased dose. 4. Metoprolol 50 mg twice daily; please note a transition to tartrate for ability to crush. 5. Oxycodone 5 mg every 4 hours as needed for pain. 6. MiraLAX 17 g daily p.r.n. for constipation. 7. Senna 1 tab at bedtime. 8. Tramadol 50 mg every 6 hours as needed for pain. PERTINENT LABORATORY DATA: Hemoglobin on discharge 8.4; hematocrit 25; platelets nadired at 52, returned to 111 on day of discharge. PERTINENT MICROBIOLOGY: E. coli about 10,000 to 25,000 CFUs. HISTORY OF PRESENT ILLNESS AND HOSPITAL COURSE: This is a 73-year-old female with a past medical history as outlined in the history of present illness on the day of admission including CVAs, hypertension, hyperlipidemia, and hypothyroidism, who presented to the hospital after a fall. Found with acute subcapital left hip fracture at [place], transferred to [facility]. Her hip fracture was fixed by Dr. Gasca on 03/22/19 without complication. Her hospital course was complicated by hypertension, systolics greater than 200. Amlodipine was added to her regimen. Additionally, her metoprolol was transitioned to tartrate and given twice daily for difficulty in swallowing. She was seen by Speech Therapy. Her diet was ultimately advanced to mechanical ground texture with thin liquids, which was recommended upon discharge. Additionally, TSH was noted to be 1.5 and she was started on 50 mcg daily; please follow in 4 to 6 weeks. She does have a history of TSH over 100. In regards to her thrombocytopenia, unclear etiology, although medication-related as a differential. Ceftriaxone was stopped the day prior to discharge with improvement, although she had only been on ceftriaxone for 3 days prior to discontinuation. This was quite a rapid improvement. At followup please; 1. Evaluate for continued blood pressure control on new medications which included metoprolol tartrate twice daily, transitioned from succinate as well as addition of amlodipine. 2. Follow TSH in 4 to 6 weeks. 3. Evaluate for continued improvement with physical therapy status post hip fracture. 4. Consider repeat platelets at time to be determined by primary care provider , may be beneficial in a month after recovery. Reason to return to the hospital including but not limited to recurrent or worsening symptoms, chest pain, shortness of breath, nausea, vomiting, lightheadedness, loss of consciousness, bleeding from any source discussed with the patient and her . They did acknowledge understanding. TIME SPENT: Greater than 60 minutes was spent on the discharge of this patient , greater than half was spent [id number] with the patient. [id number]/CPS #: [id number] KATHERINED
[2019-03-26 12:19] LABS: Hepatitis C Antibody Nonreactive (Nonreactive)
== END 2019-03-26 11:31 | DRG 469 ==
LOC: ED 16:03 → SSU 18:39
PROVIDERS: ADMIT Internal Medicine; ATTEND Internal Medicine
PROC: 0SRS03A Replacement of Left Hip Joint, Femoral Surface with Ceramic Synthetic Substitute, Uncemented, Open Approach (ICD-10-PCS; principal; 2019-03-22 12:30)
DX: S72.012A Unspecified intracapsular fracture of left femur, initial encounter for closed fracture (principal); G93.41 Metabolic encephalopathy; N39.0 Urinary tract infection, site not specified; G81.94 Hemiplegia, unspecified affecting left nondominant side; W19.XXXA Unspecified fall, initial encounter; I10 Essential (primary) hypertension; B96.20 Unspecified Escherichia coli [E. coli] as the cause of diseases classified elsewhere; E78.5 Hyperlipidemia, unspecified; E03.9 Hypothyroidism, unspecified; D69.6 Thrombocytopenia, unspecified; I44.0 Atrioventricular block, first degree; G93.89 Other specified disorders of brain; R50.9 Fever, unspecified; Z79.82 Long term (current) use of aspirin; Y92.009 Unspecified place in unspecified non-institutional (private) residence as the place of occurrence of the external cause
CPT/HCPCS: 36415; 70450; 80048; 80061; 80076; 81003; 81015; 82607; 82746; 82803; 83036; 83735; 83880; 84443; 84484; 85014; 85018; 85025; 85027; 85049; 85060; 85610; 85730; 86803; 86850; 86900; 86901; 87040; 87077; 87086; 87186; 88305; 88311; 93005; 93306; 99284; A9270-GY; C1776; G8978-GP-CM; G8979-GP-CK; G8987-GO-CN; G8988-GO-CK; J0360; J0690; J0696; J1170; J1644; J1650; J2001; J2270; J2704; J2710; J3010; J3475; J3480; J3490

== ENCOUNTER 2020-07-11 10:30 | Inpatient (IN) ==
[2020-07-11] MEDS ORDERED: NS 0.9% 1000 ml BAG 1,000 ML IV ONE (10:31)
[2020-07-11] MEDS ORDERED: Alteplase (100 mg Vial) 100 mg VIAL ONE (10:36)
[2020-07-11 11:01] LABS: Hematocrit 31 % (35-47); Mean Corpuscular HGB Conc 35 g/dL (31-36); Mean Corpuscular Hemoglobin 30 pg (27-31); Mean Corpuscular Volume 84 fL (80-97); Mean Platelet Volume 8.1 fL (7.4-10.4); Platelet Count 146 10^3/uL (150-450); Red Blood Count 3.72 10^6 /uL (3.70-4.87); Red Cell Distribution Width 16 % (10-15); White Blood Count 2.6 10^3/uL (3.5-10.8)
[2020-07-11 11:33] LABS: Troponin I 0.04 ng/mL (<0.03)
[2020-07-11 11:36] LABS: ABS Lymphocytes 0.2 10^3/ul (1.0-4.8); ABS Neutrophils 2.3 10^3/ul (1.5-7.7); Eosinophil % 0.3 %; Lymphocyte % 7.8 %; Nucleated Red Blood Cells % 0.6
[2020-07-11] MEDS ORDERED: Magnesium Hydroxide LIQ 30 ML UDC PO PRN (11:37)
[2020-07-11] MEDS ORDERED: Ondansetron 4 mg VIAL 2 MG/ML 2 ml VIAL IV PRN (11:37)
[2020-07-11] MEDS ORDERED: Lorazepam PYXIS KEY PRN (11:38)
[2020-07-11] MEDS ORDERED: LORazepam 2 mg VIAL 1 ml IV PUSH ONE ×2 (11:38→12:10)
[2020-07-11 11:40] LABS: ALT 8 U/L (7-52); Albumin 3.8 g/dL (3.2-5.2); Albumin/Globulin Ratio 1.5 (1-3); Alkaline Phosphatase 78 U/L (34-104); BUN/Creatinine Ratio 19.4 (8-20); Blood Urea Nitrogen 27 mg/dL (6-24); CO2 Carbon Dioxide 21 mmol/L (22-32); Calcium 9.2 mg/dL (8.6-10.3); Chloride 107 mmol/L (101-111); Cholesterol 106 mg/dL; EGFR African American 44.7 (>60); Globulin 2.6 g/dL (2-4); Glucose 189 mg/dL (70-100); HDL Cholesterol 30.5 mg/dL; LDL Cholesterol 44 mg/dL; Sodium 143 mmol/L (135-145); Total Protein 6.4 g/dL (6.4-8.9); Triglycerides 159 mg/dL
[2020-07-11 11:42] LABS: Anion Gap 15 mmol/L (2-11)
[2020-07-11] MEDS ORDERED: Morphine ORAL CONCENTRATE 5 MG/0.25 ML ORAL.SYRIN SL PRN (11:42)
[2020-07-11] MEDS ORDERED: Atropine 1% (ORAL/SL) 15 ML BTL SL PRN (11:43)
[2020-07-11 11:59] VITALS: BP 90/62
[2020-07-11 12:01] LABS: INR 1.39 (0.82-1.09)
[2020-07-11 12:19] LABS: Potassium Redraw 2.8 mmol/L (3.5-5.0)
[2020-07-11] MEDS: Morphine ORAL CONCENTRATE 5 MG/0.25 ML ORAL.SYRIN SL PRN ×2 (15:17→19:56)
[2020-07-12] MEDS: Morphine ORAL CONCENTRATE 5 MG/0.25 ML ORAL.SYRIN SL PRN (02:08)
== END 2020-07-12 03:37 | disposition expired | DRG 65 ==
LOC: ED 10:30 → MED 12:23
PROVIDERS: ADMIT Internal Medicine; ATTEND Pediatrics